=== PATIENT | female | born 2000 ===

== ENCOUNTER 2020-04-02 09:06 | Emergency (ER) | payer BC ==
[2020-04-02] MEDS ORDERED: Lactated Ringers 1,000 ML IV ONE (09:45)
[2020-04-02] MEDS ORDERED: LORazepam 2 MG/ML SDV IVPUSH ONE (09:45)
--- NOTE | 2020-04-02 10:03 | EDM.PDOC ---
ED [facility] GENERAL MEDICAL PROBLEM - General Chief Complaint: Respiratory Problem Stated Complaint: SOB Time Seen by Provider: 04/02/20 09:20 - History of Present Illness INITIAL COMMENTS - FREE TEXT/NARRATIVE: HISTORY AND PHYSICAL: History of present illness: This 19-year-old female with a past medical history of depression and dermatologic picking. She was recently started on dextro amphetamine and yesterday or the day before started having significant shortness of breath, palpitations, and feels terrible. This is very distressing to her. She called her clinic where they prescribed her medications and was told to come to the emergency department immediately for the possibility of heart attack, pulmonary embolism, or medication side effect. The patient denies any hemoptysis or unilateral leg swelling. She stopped smoking in August of this year. She still takes oral contraceptive pill with some estrogen in it. She does not have any chest pain but feels like her heart is racing and that it is hard to catch her breath. She does not have any radiation of symptoms. No other associated signs or symptoms. No other modifying, aggravating or alleviating factors. Review of systems: A 10-point review of systems, other than pertinent positives and negatives as stated per HPI, is otherwise negative. Past medical history: As per history of present illness and as reviewed below otherwise noncontributory. Surgical history: As per history of present illness and as reviewed below otherwise noncontributory. Social history: No reported history of drug or alcohol abuse. Family history: As per history of present illness and as reviewed below otherwise noncontributory. Physical exam: VITAL SIGNS: Reviewed. GENERAL: Appears emotionally distressed but not acutely ill. She does not appear toxic. She occasionally takes a deep breath in size and closes her eyes and leans her head forward. HEAD: No signs of head trauma. EYES: Pupils are equal. Extraocular motions intact. EARS: Hearing grossly intact. MOUTH: Oropharynx is normal. NECK: No adenopathy, no JVD. CHEST: Chest with clear breath sounds bilaterally. No wheezes, rales, or rhonchi. CARDIAC: Regular rate and rhythm. Normal S1 and S2, without murmurs, gallops, or rubs. VASCULAR: Peripheral pulses normal and equal in all extremities. ABDOMEN: Soft, without detectable tenderness. No sign of distention. No rebound or guarding, and no masses palpated. MUSCULOSKELETAL: Good range of motion of all major joints. Extremities without clubbing, cyanosis or edema. NEUROLOGIC EXAM: Alert and oriented x 3. No focal sensory or motor deficits. Speech normal. Follows commands. PSYCHIATRIC: Mood normal. SKIN: No rash or lesions. Multiple healed scars on her arms. She states this is from picking. Initial Differential Diagnosis & Plan: Shortness of breath: Differential diagnosis includes asthma, COPD, pneumonia, congestive heart failure, anemia, thyroid disease, acidosis, pulmonary embolism, myocardial infarction, sepsis. Unlikely that this represents COPD given the patient's history. No adventitious breath sounds to suggest acute bronchospasm. Doubt congestive heart failure although this is possible at the beginning of amphetamine treatment but is unlikely. I will check for anemia, thyroid disease, and obtain a d-dimer because the patient is low to intermediate risk pre-test probability for PE. I doubt myocardial infarction as the EKG does not show ischemic changes. There is a suggestion of a short MS interval which may be provoking her symptoms and put her at risk for cardiac complications of Adderall/amphetamine therapy. I will give 1 mg of Ativan intravenously, 1 L of fluids, and check labs. We will reevaluate after this. Definitive disposition and diagnosis as appropriate pending reevaluation and re view of above. Chest Pain Score (Numeric/FACES): 6 - Related Data Allergies Allergy/AdvReac Type Severity Reaction Status Date / Time No Known Allergies Allergy Verified 04/02/20 09:28 Home Meds: Home Meds Desogestrel/Ethinyl Estradiol [Apri] 1 tab PO DAILY 04/02/20 [History] Dextroamphetamine [Dexedrine] 10 mg PO BID 04/02/20 [History] Flaxseed Oil [Flaxseed] 1,000 mg PO DAILY 04/02/20 [History] Iron 18 mg PO DAILY 04/02/20 [History] Selenium 50 mcg PO DAILY 04/02/20 [History] Past Medical History Gastrointestinal History: Reports: None Psychiatric History: Reports: ADHD Hematologic History: Reports: Anemia - Infectious Disease History Infectious Disease History: Reports: None - Past Surgical History GI Surgical History: Reports: Appendectomy Social & Family History - Family History Family Medical History: Noncontributory - Tobacco Use Smoking Status *Q: Former Smoker Years of Tobacco use: 1 Used Tobacco, but Quit: Yes Month/Year Tobacco Last Used: 08/06/2019 Second Hand Smoke Exposure: Yes - Caffeine Use Caffeine Use: Reports: Energy Drinks - Recreational Drug Use Recreational Drug Use: No ED ROS GENERAL - Review of Systems Review Of Systems: See Below (note) ED EXAM, GENERAL - Physical Exam Exam: See Below (noted) EKG INTERPRETATION EKG Interpretation Comments: 12 lead EKG interpretation Obtained: April 02, 2020 at 9:22 AM Rhythm: Sinus Rate: 93 [place]: Normal Intervals: Short MS interval ST/T Segments: No acute ischemic changes Interpretation: Sinus rhythm with short MS interval. Course - Vital Signs Last Recorded V/S: Last Vital Signs Temp 97.6 F 04/02/20 09:31 Pulse 100 04/02/20 09:31 Resp 15 04/02/20 09:31 BP 142/89 H 04/02/20 09:31 Pulse Ox 98 04/02/20 09:31 - Orders/Labs/Meds Orders: Active Orders 24 hr Category Date Time Status EKG 12 Lead [EKG Documentation Completion] [RC] STAT Care 04/02/20 09:21 Active Chest 2V [CR] Stat Exams 04/02/20 09:45 Taken UA RFX ELIAZAR AND CULT IF INDIC [URIN] Stat Lab 04/02/20 09:44 Ordered Labs: Laboratory Tests 04/02/20 04/02/20 04/02/20 Range/Units 09:54 09:54 09:54 WBC 5.38 (4.0-11.0) K/uL RBC 4.83 (4.30-5.90) M/uL Hgb 13.6 (12.0-16.0) g/dL Hct 40.3 (36.0-46.0) % MCV 83.4 (80.0-98.0) fL MCH 28.2 (27.0-32.0) pg MCHC 33.7 (31.0-37.0) g/dL RDW Std Deviation 38.8 (28.0-62.0) fl RDW Coeff of Cameron 13 (11.0-15.0) % Plt Count 225 (150-400) K/uL MPV 10.50 (7.40-12.00) fL Neut % (Auto) 62.3 (48.0-80.0) % Lymph % (Auto) 28.8 (16.0-40.0) % [place] % (Auto) 6.7 (0.0-15.0) % Eos % (Auto) 2.0 (0.0-7.0) % Baso % (Auto) 0.2 (0.0-1.5) % Neut # (Auto) 3.4 (1.4-5.7) K/uL Lymph # (Auto) 1.6 (0.6-2.4) K/uL [place] # (Auto) 0.4 (0.0-0.8) K/uL Eos # (Auto) 0.1 (0.0-0.7) K/uL Baso # (Auto) 0.0 (0.0-0.1) K/uL Nucleated RBC % 0.0 /100WBC Nucleated RBCs # 0 K/uL D-Dimer, Quantitative 0.32 (0.0-0.50) mg/L FEU Sodium 140 (136-145) mmol/L Potassium 3.7 (3.5-5.1) mmol/L Chloride 107 (98-107) mmol/L Carbon Dioxide 18.7 L (21.0-32.0) mmol/L BUN 6 L (7.0-18.0) mg/dL Creatinine 1.1 H (0.6-1.0) mg/dL Est Cr Clr Drug Dosing 88.22 mL/min Estimated GFR (MDRD) > 60.0 ml/min Glucose 107 H (74-106) mg/dL Calcium 9.2 (8.5-10.1) mg/dL Magnesium 2.0 (1.8-2.4) mg/dL Total Bilirubin 0.4 (0.2-1.0) mg/dL AST 34 (15-37) IU/L ALT 39 (14-63) IU/L Alkaline Phosphatase 62 (46-116) U/L Troponin I < 0.050 (0.000-0.056) ng/mL Total Protein 7.4 (6.4-8.2) g/dL Albumin 3.7 (3.4-5.0) g/dL Globulin 3.7 (2.6-4.0) g/dL Albumin/Globulin Ratio 1.0 (0.9-1.6) Free T4 1.06 (0.76-1.46) ng/dL TSH 3rd Generation 1.66 (0.52-4.13) uIU/mL HCG, Quant < 1.0 mIU/mL Meds: Medications Discontinued Medications Generic Name Dose Route Start Last Admin Trade Name Gordon PRN Reason Stop Dose Admin Lactated Ringer's 1,000 mls @ 1,000 mls/hr 04/02/20 09:45 04/02/20 10:01 Ringers, Lactated IV 04/02/20 10:44 1,000 mls/hr .BOLUS ONE Administration Lorazepam 1 mg 04/02/20 09:45 04/02/20 10:01 Ativan IVPUSH 04/02/20 09:46 1 mg ONETIME ONE Administration - Re-Assessments/Exams Free Text/Narrative Re-Assessment/Exam: 04/02/20 11:16 Better. Heart rate is down to normal range. Have asked her to stop taking her prescribed amphetamine. We will give her the rest of the day off. Departure - Departure Time of Disposition: 11:16 Disposition: Home, Self-Care 01 Clinical Impression: Shortened MS interval, Sinus tachycardia, Amphetamine adverse reaction - Discharge Information *PRESCRIPTION DRUG MONITORING PROGRAM REVIEWED*: Not Applicable *COPY OF PRESCRIPTION DRUG MONITORING REPORT IN PATIENT [facility]: Not Applicable Instructions: Sinus Tachycardia, Stimulant Use Disorder-Amphetamines Referrals: Natalie Ford DO [Primary Care Provider] - Forms: ED Department Discharge Additional Instructions: The following information is given to patients seen in the emergency department who are being discharged to home. This information is to outline your options for follow-up care. We provide all patients seen in our emergency department with a follow-up referral. The need for follow-up, as well as the timing and circumstances, are variable depending upon the specifics of your emergency department visit. If you don't have a primary care physician on staff, we will provide you with a referral. We always advise you to contact your personal physician following an emergency department visit to inform them of the circumstance of the visit and for follow-up with them and/or the need for any referrals to a consulting specialist. The emergency department will also refer you to a specialist when appropriate. This referral assures that you have the opportunity for follow-up care with a specialist. All of these measure are taken in an effort to provide you with optimal care, which includes your follow-up. Thank you for coming to the [facility] urgency department for your care today. It was Dr. Kate's pleasure to take care of you. [facility] - Primary [facility] [address] [place] [address] [facility] [address] [place] [address] Your symptoms are likely secondary to your amphetamine salts that you were given. Please stop taking this. Please return emergency department for worsening or any other concerns. Under all circumstances we always encourage you to contact your private physician who remains a resource for coordinating your care. When calling for follow-up care, please make the office aware that this follow-up is from your recent emergency room visit. If for any reason you are refused follow-up, please contact the [facility] Emergency Department at and asked to speak to the emergency department charge nurse. Sepsis Event Note (ED) - Evaluation Sepsis Screening Result: No Definite Risk - Focused Exam Vital Signs: Vital Signs Temp Pulse Resp BP Pulse Ox 04/02/20 09:31 97.6 F 100 15 142/89 H 98 - My Orders Last 24 Hours: My Active Orders 04/02/20 09:21 EKG 12 Lead [EKG Documentation Completion] [RC] STAT 04/02/20 09:44 UA RFX ELIAZAR AND CULT IF INDIC [URIN] Stat 04/02/20 09:45 Chest 2V [CR] Stat - Assessment/Plan Last 24 Hours: My Active Orders 04/02/20 09:21 EKG 12 Lead [EKG Documentation Completion] [RC] STAT 04/02/20 09:44 UA RFX ELIAZAR AND CULT IF INDIC [URIN] Stat 04/02/20 09:45 Chest 2V [CR] Stat
[2020-04-02 10:40] LABS: BLOOD UREA NITROGEN,BUN 6 mg/dL (7.0-18.0); CARBON DIOXIDE,CO2 18.7 mmol/L (21.0-32.0); CHLORIDE,CL 107 mmol/L (98-107); GLUCOSE RANDOM 107 mg/dL (74-106); POTASSIUM,K 3.7 mmol/L (3.5-5.1); SODIUM,NA 140 mmol/L (136-145)
[2020-04-02 11:25] VITALS: BP 123/79; PULSE 89
--- NOTE | 2020-04-02 11:29 | CR ---
Chest: 2 views of the chest were obtained. Comparison: No prior chest imaging is available. Heart size and mediastinum are normal. Lungs are clear. Bony structures are unremarkable for the patient's age. Impression: 1. Nothing acute is seen on 2 view chest x-ray. Diagnostic code #1 This report was dictated in MDT
== END 2020-04-02 11:25 | disposition home or self-care (01) ==
LOC: MW.ED 09:06
DX: I49.5 Sick sinus syndrome (principal); R94.31 Abnormal electrocardiogram [ECG] [EKG]; T43.625A Adverse effect of amphetamines, initial encounter; F90.9 Attention-deficit hyperactivity disorder, unspecified type; Z87.891 Personal history of nicotine dependence; Z79.899 Other long term (current) drug therapy
CPT/HCPCS: 36415; 71046; 80053; 83735; 84439; 84443; 84484; 84702; 85025; 85379; 93005; 96361; 96374; 99285; J2060; J7120; 99283